=== PATIENT | male | born 2000 | race Caucasian/White ===

== ENCOUNTER 2024-12-11 23:34 | Emergency (ER) | payer SELFPAY ==
[2024-12-11 23:49] VITALS: BP 133/65; PULSE 74; RESP 20; TEMP 36.6; O2SAT 99; BMI 19.8
[2024-12-12 03:31] VITALS: BP 110/63; PULSE 57; RESP 14; O2SAT 99
[2024-12-12 04:00] VITALS: BP 106/49; PULSE 48; O2SAT 96
[2024-12-12 05:00] VITALS: BP 119/70; PULSE 47; O2SAT 100
[2024-12-12 05:21] LABS: Glucose Urine UA Negative (Normal); Nitrate Urine Negative (Negative)
[2024-12-12 05:25] LABS: Specific Gravity, Urine 1.032 (1.005-1.030)
[2024-12-12 05:40] VITALS: BP 100/55; PULSE 46; O2SAT 98
[2024-12-12 06:00] VITALS: BP 118/72; PULSE 64; O2SAT 92
--- NOTE | 2024-12-12 06:12 | W.ED.MALEGU ---
HPI - Male Genitourinary General: Chief complaint: Urogenital-Male Stated complaint: Has sore on privates Time Seen by Provider: 12/12/24 03:15 History of Present Illness: Adult male presents with a painful penile lesion and mild urethral burning with urination. He reports a solitary raised spot on the glans that developed recently without discharge. He was evaluated for an STI at another facility in the past and received an injection and oral pills but is unsure of the results. He has not had further sexual activity with the same partner. The patient states he previously tested positive for HPV and believes he has herpes; however, he is uncertain which infection he actually has. He denies fluid-filled vesicles, systemic symptoms, or multiple ulcers. No significant fever reported. He is anxious about possible HSV versus other STIs and requests full testing. Related Data Previous Rx's ?Medication ?Instructions ?Recorded acyclovir 400 mg tablet 400 mg PO Q8H 5 days #15 tabs 12/12/24 Physical Exam Const: COMMON NORMALS: no acute distress, patient oriented x3 and alert HENMT: COMMON NORMALS: normocephalic and atraumatic HEAD & SCALP: normocephalic and atraumatic Eye: COMMON NORMALS: Equal, round and reactive pupils present, EOMs intact bilaterally and no scleral icterus PUPIL: Yes Equal, round and reactive pupils present Resp: COMMON NORMALS: normal respiratory effort and No retractions Cardio: COMMON NORMALS: regular rate, regular rhythm and No murmurs present (Cardio) RATE: regular rate RHYTHM: regular rhythm GI: COMMON NORMALS: Normal to inspection, nondistended, normoactive bowel sounds present, Soft to palpation and non-tender PALPATION: Yes Soft to palpation : OTHER: Solitary 2 mm circular pale lesion on the glans penis with no active drainage or surrounding erythema or warmth. Neuro: COMMON NORMALS: patient oriented x3 SENSORIUM/ORIENTATION: Yes alert Skin: COMMON NORMALS: no rashes or lesions noted GENERAL SKIN EXAM: no rashes or lesions noted Course Vital Signs: Vital signs: Vital Signs Temperature 97.8 F 12/11/24 23:49 Pulse Rate 46 L 12/12/24 05:40 Respiratory Rate 14 12/12/24 03:31 Blood Pressure 100/55 12/12/24 05:40 Pulse Oximetry 98 12/12/24 05:40 Oxygen Delivery Me thod Room Air 12/12/24 03:31 MDM - Male Medical Decision Making Patient remained hemodynamically stable throughout ED course. Differential includes HSV, HPV or, early syphilitic chancre. I doubt syphilis as there is no erosion. HPV is likely but with no active drainage no testing is feasible. He will be discharged in stable condition and instructed to follow-up with primary care or the the health department for further testing. He shows good understanding and agrees to the plan. He will be given acyclovir Lab Data Laboratory Results Urine Color Yellow (Yellow) 12/12/24 05:14 Urine Appearance Clear (CLEAR) 12/12/24 05:14 Urine pH 5.5 (5-7) 12/12/24 05:14 Ur Specific [place] 1.032 (1.005-1.030) H 12/12/24 05:14 Urine Protein Negative (Negative) 12/12/24 05:14 Urine Glucose (UA) Negative (Normal) 12/12/24 05:14 Urine Ketones Negative (Negative) 12/12/24 05:14 Urine Blood Negative (Negative) 12/12/24 05:14 Urine Nitrate Negative (Negative) 12/12/24 05:14 Urine Bilirubin Negative (Negative) 12/12/24 05:14 Urine Urobilinogen 1.0 mg/dL (Negative) 12/12/24 05:14 Ur Leukocyte Esterase Negative (Negative) 12/12/24 05:14 Urine RBC 0-2 /hpf (0-2) 12/12/24 05:14 Urine WBC 0-5 /hpf (0-5) 12/12/24 05:14 Ur Squamous Epith Cells 0-5 /hpf (0-5) 12/12/24 05:14 Amorphous Sediment Not Reportable 12/12/24 05:14 Urine Bacteria None seen /hpf (NONE) 12/12/24 05:14 Hyaline Casts 0-4 /lpf H 12/12/24 05:14 No radiology studies performed this visit Discharge Plan Discharge Patient Disposition: Home Clinical Impression: Lesion of penis Condition: Stable Prescriptions: New acyclovir 400 mg tablet 400 mg PO Q8H 5 Days Qty: 15 0RF Discharge Orders: Discharge ED (Routine); Ordered 12/12/24 Ordered By: Devonte Madera Patient Instructions: Genital Herpes Infection (ED), Patient Portal & Viv Instructions Activity Restrictions/Additional Instructions: Unfortunately without active drainage, lesions cannot be tested for definitive diagnosis. Regardless, the medicine prescribed should help this flare go away. If lesion opens and has drainage please return to the emergency department or go to any other medical facility to have the lesion swabbed for definitive diagnosis. Print Language: [place] Coding Level of Care Code ED Outside Industrial Sales Representative for Yamilka Hagen
[2024-12-12 06:40] VITALS: BP 118/72; PULSE 57; O2SAT 94
[2024-12-12 06:55] LABS: Neisseria Gonorrhea NOT DETECTED (Negative)
== END 2024-12-12 06:43 | disposition home or self-care (01) ==
PROVIDERS: Emergency Provider Student in an Organized Health Care Education/Training Program
DX: N48.89 Other specified disorders of penis (principal)
CPT/HCPCS: 81001; 87491; 87591; 99283

== ENCOUNTER 2025-01-01 18:02 | Emergency (ER) | payer SELFPAY ==
[2025-01-01 18:07] VITALS: BP 111/62; PULSE 67; RESP 17; TEMP 36.8; O2SAT 98; BMI 19.8
--- NOTE | 2025-01-01 18:31 | W.ED.MALEGU ---
HPI - Male Genitourinary General: Chief complaint: Urogenital-Male Stated complaint: [place] UTI Time Seen by Provider: 01/01/25 18:06 Related Data Allergies Allergy/AdvReac Type Severity Reaction Status Date / Time No Known Allergies Allergy Verified 01/01/25 18:11 Course Vital Signs: Vital signs: Vital Signs Temperature 98.2 F 01/01/25 18:07 Pulse Rate 67 01/01/25 18:07 Respiratory Rate 17 01/01/25 18:07 Blood Pressure 111/62 01/01/25 18:07 Pulse Oximetry 98 01/01/25 18:07 Oxygen Delivery Me thod Room Air 01/01/25 18:07 Discharge Plan Discharge Condition: Stable Print Language: [place] Coding Level of Care Code ED [employer] Principal for Yamilka Hagen
--- NOTE | 2025-01-01 19:54 | W.ED.MALEGU ---
HPI - Male Genitourinary General: Chief complaint: Urogenital-Male Stated complaint: [place] UTI Time Seen by Provider: 01/01/25 18:06 Source: patient Mode of arrival: ambulatory Limitations: no limitations History of Present Illness: 24-year-old male states that he has had a clear discharge and some dysuria going on for last few weeks. He states he is seen at different office was treated for STDs he states and states they did do a swab and called him and stated it was negative for gonorrhea or chlamydia. Some slight lower abdominal aching he is concerned he may have a UTI denies any testicle pain. Associated symptoms: Deny nausea or vomiting Related Data Allergies Allergy/AdvReac Type Severity Reaction Status Date / Time No Known Allergies Allergy Verified 01/01/25 18:11 Review of Systems Const: Denies: fever(s), chills, body aches or change in appetite ENMT: Denies: throat pain or dental pain Card: Denies: chest pain Resp: Denies: dyspnea GI: Reports: abdominal pain; Denies: nausea, vomiting or diarrhea : Reports: penile discharge Musc: Denies: neck pain or back pain Skin/Breast: Denies: rash Neuro: Denies: headache(s) Physical Exam Const: COMMON NORMALS: no acute distress, patient oriented x3 and healthy appearing HENMT: COMMON NORMALS: normocephalic and atraumatic HEAD & SCALP: normocephalic and atraumatic Neck/C-Spine: COMMON NORMALS: full ROM and supple Chest: COMMONS NORMALS: normal inspection of the chest Resp: COMMON NORMALS: normal respiratory effort Cardio: COMMON NORMALS: regular rate RATE: regular rate GI: COMMON NORMALS: Normal to inspection, nondistended, normoactive bowel sounds present, Soft to palpation and non-tender PALPATION: Yes Soft to palpation Extremity: COMMON NORMALS: normal to inspection and full ROM Neuro: COMMON NORMALS: patient oriented x3, moves all extremities and no focal motor deficits Psych: COMMON NORMALS: mental status grossly normal, Normal thought process present and cooperative THOUGHT PROCESS: Normal thought process present Skin: COMMON NORMALS: no rashes or lesions noted and no wounds GENERAL SKIN EXAM: no rashes or lesions noted Course Vital Signs: Vital signs: Vital Signs Temperature 98.2 F 01/01/25 18:07 Pulse Rate 67 01/01/25 18:07 Respiratory Rate 17 01/01/25 18:07 Blood Pressure 111/62 01/01/25 18:07 Pulse Oximetry 98 01/01/25 18:07 Oxygen Delivery Me thod Room Air 01/01/25 18:07 MDM - Male Medical Decision Making Patient presents here with some slight dysuria and he states a clear discharge urinalysis here is negative he has been tested for gonorrhea and chlamydia and treated we will send another gonorrhea and chlamydia out. He stable for discharge at this time his abdominal exam is benign Medical Records I reviewed the patient's medical records. Lab Data I reviewed the patient's lab results. Laboratory Results Urine Color Yellow (Yellow) 01/01/25 20:02 Urine Appearance Cloudy (CLEAR) A 01/01/25 20: Urine pH 6.5 (5-7) 01/01/25 20:02 Ur Specific [place] 1.024 (1.005-1.030) 01/01/25 20:02 Urine Protein Negative (Negative) 01/01/25 20:02 Urine Glucose (UA) Negative (Normal) 01/01/25 20:02 Urine Ketones Trace (Negative) 01/01/25 20:02 Urine Blood Negative (Negative) 01/01/25 20:02 Urine Nitrate Negative (Negative) 01/01/25 20:02 Urine Bilirubin Negative (Negative) 01/01/25 20:02 Urine Urobilinogen 1.0 mg/dL (Negative) 01/01/25 20:02 Ur Leukocyte Esterase Negative (Negative) 01/01/25 20:02 Urine RBC 0-2 /hpf (0-2) 01/01/25 20:02 Urine WBC 0-5 /hpf (0-5) 01/01/25 20:02 Ur Squamous Epith Cells 0-5 /hpf (0-5) 01/01/25 20:02 Amorphous Sediment Not Reportable 01/01/25 20:02 Urine Bacteria None seen /hpf (NONE) 01/01/25 20:02 Hyaline Casts 0.40 /lpf 01/01/25 20:02 No radiology studies performed this visit Discharge Plan Discharge Patient Disposition: Home Clinical Impression: Discharge from penis Condition: Stable Discharge Orders: Discharge ED (Routine); Ordered 01/01/25 Ordered By: Tu Weaver Discharge Diet: Advance as tolerated Discharge Activity: Resume usual activity Patient Instructions: Dysuria - Male Print Language: Romanian Coding Level of Care Code ED Health And Safety Inspector for Yamilka Hagen
[2025-01-01 20:10] LABS: Glucose Urine UA Negative (Normal); Nitrate Urine Negative (Negative); Specific Gravity, Urine 1.024 (1.005-1.030)
[2025-01-03 18:25] LABS: Chlamydia Trachomatis RNA TMA NOT DETECTED (NOT DETECTED); Neisseria Gonorrhoeae RNA, TMA NOT DETECTED (NOT DETECTED)
== END 2025-01-01 20:26 | disposition home or self-care (01) ==
PROVIDERS: Emergency Medicine; Emergency Provider Emergency Medicine
DX: R36.9 Urethral discharge, unspecified (principal)
CPT/HCPCS: 81001; 87491; 87591; 99283